=== PATIENT | female | born 1955 | race Caucasian/White ===

== ENCOUNTER 2017-09-20 09:35 | Emergency (ER) | payer SELFPAY ==
[~2017-09-20] VITALS: Ht 167.6 cm; Wt 77.0 kg
[2017-09-20 09:56] VITALS: BP 142/85; PULSE 59; RESP 18; TEMP 98.9; O2SAT 98
[2017-09-20] MEDS ORDERED: SODIUM CHLOR 0.9% 1000 ML INJ 1,000 ML IV SCH (12:06)
[2017-09-20] MEDS ORDERED: SODIUM CHLORIDE 0.9% FLUSH 10 ML FLUSH IVF PRN (12:15)
[2017-09-20] MEDS ORDERED: MORPHINE SULFATE 2 MG/ML INJ IV PUSH ONE (12:15)
--- NOTE | 2017-09-20 12:21 | PD ---
HPI Chief Complaint: Fall Time Seen by Provider: 11:56 Travel History International Travel<30 days: No Contact w/Intl Traveler<30days: No Traveled to known affect area: No History of Present Illness HPI 62-year-old female presents emergency department after a fall that occurred last night. States that [place] step and landed on a concrete wall. Says she had her face, chest, and left hand. Currently she is complaining of severe left orbit and jaw pain. Says she is unable to completely open her jaw because of the pain. Says she woke up this morning and her left chest left hand was tender and painful and decided to come to the emergency department today. She denies loss of consciousness, blurred vision. Says she does have a headache mainly located in the left occipital region. Says she has taken Aleve without significant relief. Says she has a history of a brain tumor status post surgery approximate 4 years ago. Also has a history of asthma and hypothyroidism which are well-controlled with medication. Says she is visiting from [place] for a convention at the urgent center and she is due to return home tomorrow evening. Says she did have an alcoholic drink with dinner but denies excessive consumption resulting in this injury. [facility] Social History Tobacco Use: Yes Allergies-Medications (Allergen,Severity, Reaction): Coded Allergies: No Known Allergies (Unverified , 09/20/17) Review of Systems Except as stated in HPI: all other systems reviewed are Neg Physical Exam Narrative GENERAL: Well-developed, well-nourished, cheerful SKIN: Warm and dry. HEAD: Atraumatic. Normocephalic. TTP to left occipital region without obvious ecchymosis or deformities EYES: Pupils equal and round. No scleral icterus. No injection or drainage. EOMI, no ptosis, no proptosis. Left lateral sphenoid with depression without obvious crepitus. No obvious subcutaneous emphysema. ENT: No nasal bleeding or discharge. Mucous membranes pink and moist. She has very limited ROM of her jaw. NECK: Trachea midline. No JVD. No step-offs or deformities, mild tenderness palpation at the occipital and cervical spine area CARDIOVASCULAR: Regular rate and rhythm. RESPIRATORY: No accessory muscle use. Clear to auscultation. Breath sounds equal bilaterally. Tender to palpation in the anterior and lateral chest wall. No obvious ecchymosis or deformities GASTROINTESTINAL: Abdomen soft, mild tender palpation to the left upper quadrant MUSCULOSKELETAL: Extremities without clubbing, cyanosis, or edema. No obvious deformities. Left middle finger-ecchymosis over the PIP, full range of motion with tenderness no crepitus or deformities NEUROLOGICAL: Awake and alert. No obvious cranial nerve deficits. Motor grossly within normal limits. Five out of 5 muscle strength in the arms and legs. Normal speech. PSYCHIATRIC: Appropriate mood and affect; insight and judgment normal. Data Data Last Documented VS Vital Signs Date Time Temp Pulse Resp B/P (MAP) Pulse Ox O2 Delivery O2 Flow Rate FiO2 09/20/17 18:19 51 16 141/99 (113) 98 Room Air 09/20/17 09:56 98.9 Orders Orders Complete Blood Count With Diff (09/20/17 12:06) Prothrombin Time / Inr (Pt) (09/20/17 12:06) Act Partial Throm Time (Ptt) (09/20/17 12:06) Type And Screen (09/20/17 12:06) Urinalysis - C+S If Indicated (09/20/17 12:06) Ct Brain W/O Iv Contrast(Rout) (09/20/17 12:06) Ct Cerv Spine W/O Contrast (09/20/17 12:06) Ct Abd/Pel W Iv Contrast(Rout) (09/20/17 12:06) Ct Thorax/ Chest W Iv Contrast (09/20/17 12:06) Ct Facial Bones W/O Iv Cont (09/20/17 12:06) Electrocardiogram (09/20/17 12:06) Iv Access Insert/Monitor (09/20/17 12:06) Ecg Monitoring (09/20/17 12:06) Oximetry (09/20/17 12:06) Oxygen Administration (09/20/17 12:06) Sodium Chlor 0.9% 1000 Ml Inj (Ns 1000 M (09/20/17 12:06) Sodium Chloride 0.9% Flush (Ns Flush) (09/20/17 12:15) Ct Thor Spine W/O Contrast (09/20/17 ) Ct Lumb Spine W/O Contrast (09/20/17 ) Comprehensive Metabolic Panel (09/20/17 12:06) Lipase (09/20/17 12:06) Morphine Inj (Morphine Inj) (09/20/17 12:15) Hand, Complete ([id number]) (09/20/17 ) Iohexol 350 Inj (Omnipaque 350 Inj) (09/20/17 15:30) Ed Discharge Order (09/20/17 17:38) Support Splint (09/20/17 17:44) Finger Splint (09/20/17 ) Labs Laboratory Tests Test 09/20/17 12:20 09/20/17 14:50 White Blood Count 8.3 TH/MM3 Red Blood Count 4.66 MIL/MM3 Hemoglobin 14.1 GM/DL Hematocrit 41.6 % Mean Corpuscular Volume 89.3 FL Mean Corpuscular Hemoglobin 30.2 PG Mean Corpuscular Hemoglobin Concent 33.8 % Red Cell Distribution Width 13.3 % Platelet Count 305 TH/MM3 Mean Platelet Volume 8.5 FL Neutrophils (%) (Auto) 60.4 % Lymphocytes (%) (Auto) 22.8 % Monocytes (%) (Auto) 7.5 % Eosinophils (%) (Auto) 8.6 % Basophils (%) (Auto) 0.7 % Neutrophils # (Auto) 5.0 TH/MM3 Lymphocytes # (Auto) 1.9 TH/MM3 Monocytes # (Auto) 0.6 TH/MM3 Eosinophils # (Auto) 0.7 TH/MM3 Basophils # (Auto) 0.1 TH/MM3 CBC Comment DIFF FINAL Differential Comment Prothrombin Time 9.7 SEC Prothromb Time International Ratio 1.0 RATIO Activated Partial Thromboplast Time 27.1 SEC Blood Urea Nitrogen 13 MG/DL Creatinine 0.57 MG/DL Random Glucose 83 MG/DL Total Protein 7.8 GM/DL Albumin 3.8 GM/DL Calcium Level 8.7 MG/DL Alkaline Phosphatase 103 U/L Aspartate Amino Transf (AST/SGOT) 17 U/L Alanine Aminotransferase (ALT/SGPT) 20 U/L Total Bilirubin 0.6 MG/DL Sodium Level 139 MEQ/L Potassium Level 4.0 MEQ/L Chloride Level 107 MEQ/L Carbon Dioxide Level 22.4 MEQ/L Anion Gap 10 MEQ/L Estimat Glomerular Filtration Rate 107 ML/MIN Lipase 106 U/L Urine Color LIGHT-YELLOW Urine Turbidity CLEAR Urine pH 5.5 Urine Specific [place] 1.005 Urine Protein NEG mg/dL Urine Glucose (UA) NEG mg/dL Urine Ketones NEG mg/dL Urine Occult Blood TRACE Urine Nitrite NEG Urine Bilirubin NEG Urine Urobilinogen LESS THAN 2.0 MG/DL Urine Leukocyte Esterase TRACE Urine RBC 1 /hpf Urine WBC LESS THAN 1 /hpf Urine Squamous Epithelial Cells 1 /hpf Microscopic Urinalysis Comment CULT NOT INDICATED MDM Medical Decision Making Medical Screen Exam Complete: Yes Emergency Medical Condition: Yes Differential Diagnosis left middle finger fracture, contusion, sprain left chest wall contusion, rib fracture, pneumothorax Narrative Course 62y female with a history of hypothyroidism, asthma, and brain tumor s/p surg presents to the ED c/o left facial, left chest wall, left middle finger pain after a fall that occurred last night. She decided to come in today because she had increased jaw and chest wall pain. Labs and imaging studies ordered. CT maxillofacial demonstrates 1. Fracturing of left zygomatic arch. This appears acute. There is some induration in the superficial subcutaneous fat in this region. 2 maxillary sinus disease. 3. Chronic changes the left frontal bone. For low density in the inferior frontal lobes likely from contusions. This could be chronic." I spoke to Dr. Burgos and explained patient's history and findings on CT. Says that the findings are possibly from the previous surgery. Recommended I discuss his case with the radiologist. See Dr. Forte's note regarding this conversation. Morphine 2mg administered for pain, 1L NS IVF bolus for pain. CBC & BMP Diagram 09/20/17 12:20 Total Protein 7.8, Albumin 3.8, Calcium Level 8.7, Alkaline Phosphatase 103, Aspartate Amino Transf (AST/SGOT) 17, Alanine Aminotransferase (ALT/SGPT) 20, Total Bilirubin 0.6 I advised patient follow-up with primary care physician within 2-3 days. Avoid blowing her nose or any other trauma to the face. Tylenol or Motrin per package instructions for pain relief. If symptoms persist or worsen return to the emergency department. Diagnosis Primary Impression: Sprain of left middle finger Qualified Codes: S63.633A - Sprain of interphalangeal joint of left middle finger, initial encounter Additional Impression: Zygomatic arch fracture Qualified Codes: S02.40FA - Zygomatic fracture, left side, initial encounter for closed fracture Referrals: Primary Care Physician Additional Instructions: Follow-up with your primary care physician within 2-3 days. Follow up with a maxillofacial specialist Friday. Disposition: DISCHARGE HOME Condition: Stable Elizabeth Longo Sep 20, 2017 12:21
[2017-09-20 12:25] VITALS: BP 130/80; PULSE 55; RESP 18; O2SAT 98
--- NOTE | 2017-09-20 13:00 | RADRPT ---
EXAM DATE/TIME: 09/20/2017 12:44 [facility] COMPARISON: No previous studies available for comparison. INDICATIONS : Pain from fall. MEDICAL HISTORY : None. SURGICAL HISTORY : None. ENCOUNTER: Initial ACUITY: 1 day PAIN SCORE: 5/10 LOCATION: Left hand. FINDINGS: Three view examination of the left hand demonstrates no soft tissue swelling, dislocation, or fractur e. The carpal bones appear intact. The interphalangeal and metacarpophalangeal joints are intact. Bony mineralization is normal. CONCLUSION: No acute disease. Spike Carcamo MD on September 20, 2017 at 12:55 Board Certified Radiologist. This report was verified electronically.
[2017-09-20 13:22] LABS: BASOPHIL # 0.1 TH/MM3 (0-0.2); BASOPHIL % 0.7 % (0.0-2.0); EOSINOPHIL # 0.7 TH/MM3 (0-0.4); EOSINOPHIL % 8.6 % (0.0-4.0); HEMATOCRIT 41.6 % (35.0-46.0); HEMOGLOBIN 14.1 GM/DL (11.6-15.3); LYMPH % 22.8 % (9.0-44.0); LYMPHOCYTE # 1.9 TH/MM3 (1.0-4.8); MEAN CELL VOLUME 89.3 FL (80.0-100.0); MEAN CORPUSCULAR HEMOGLOBIN 30.2 PG (27.0-34.0); MEAN CORPUSCULAR HGB CONC 33.8 % (32.0-36.0); MEAN PLATELET VOLUME 8.5 FL (7.0-11.0); MONO % 7.5 % (0.0-8.0); MONOCYTE # 0.6 TH/MM3 (0-0.9); NEUT % 60.4 % (16.0-70.0); PLATELET COUNT 305 TH/MM3 (150-450); RED BLOOD COUNT 4.66 MIL/MM3 (4.00-5.30); RED CELL DISTRIBUTION WIDTH 13.3 % (11.6-17.2); WHITE BLOOD COUNT 8.3 TH/MM3 (4.0-11.0)
[2017-09-20 13:29] LABS: PROTHROMBIN TIME - PATIENT 9.7 SEC (9.8-11.6)
[2017-09-20 13:49] LABS: ALBUMIN 3.8 GM/DL (3.4-5.0); ALT (GPT) 20 U/L (10-53); AST (GOT) 17 U/L (15-37); BICARBONATE 22.4 MEQ/L (21.0-32.0); BLOOD UREA NITROGEN 13 MG/DL (7-18); CALCIUM 8.7 MG/DL (8.5-10.1); CHLORIDE 107 MEQ/L (98-107); CREATININE 0.57 MG/DL (0.50-1.00); GLOMERULAR FILTRATION RATE 107 ML/MIN (>89); GLUCOSE,RANDOM 83 MG/DL (74-106); SODIUM (NA) 139 MEQ/L (136-145)
[2017-09-20 13:51] LABS: ALKALINE PHOSPHATASE 103 U/L (45-117); TOTAL BILIRUBIN ADULT 0.6 MG/DL (0.2-1.0); TOTAL PROTEIN 7.8 GM/DL (6.4-8.2)
[2017-09-20] MEDS ORDERED: IOHEXOL 350 MG/ML 10 ML VIAL (for RAD DIAG) IVCONTRAST ONE (15:30)
[2017-09-20 15:53] LABS: BILIRUBIN, URINE NEG (NEG); BLOOD, URINE TRACE (NEG); GLUCOSE,URINE NEG (NEG); KETONE, URINE NEG (NEG); NITRITE,URINE NEG (NEG); PH, URINE 5.5 (5.0-8.5); SQUAMOUS EPITHELIAL CELL URINE 1 /hpf (0-5); URINE COLOR LIGHT-YELLOW (YELLW/STRAW); URINE LEUKOCYTE ESTERASE TRACE (NEG)
--- NOTE | 2017-09-20 16:21 | RADRPT ---
EXAM DATE/TIME: 09/20/2017 14:53 [facility] COMPARISON: No previous studies available for comparison. INDICATIONS : Trauma, fall last night. Left sided occipital cephalgia and left sided chest pain. RADIATION DOSE: 56.35 CTDIvol (mGy) MEDICAL HISTORY : None SURGICAL HISTORY : Craniotomy. ENCOUNTER: Initial ACUITY: 1 day PAIN SCALE: 7/10 LOCATION: Left occipital head TECHNIQUE: Multiple contiguous axial images were obtained of the head. Using automated exposure control and adj ustment of the mA and/or kV according to patient size, radiation dose was kept as low as reasonably a chievable to obtain optimal diagnostic quality images. DICOM format image data is available electro nically for review and comparison. FINDINGS: CEREBRUM: The ventricles are normal for age. No evidence of midline shift, mass lesion, hemorrhage or acute in farction. There is decreased density at the inferior left frontal lobe and to a lesser degree inferi or medial right frontal lobe. No extra-axial fluid collections are seen. POSTERIOR FOSSA: The cerebellum and brainstem are intact. The 4th ventricle is midline. The cerebellopontine angle i s unremarkable. EXTRACRANIAL: The patient has postsurgical change of the left frontal bone from prior repair and/or craniotomy. The visualized portion of the orbits is intact. SKULL: The calvaria is intact. No evidence of skull fracture. There is fracturing of the left zygomatic arc h. CONCLUSION: 1. Low density nephrology bilaterally being more prominent left. This could be from prior contusions in the location. The patient does have postoperative change in the left frontal bone. More acute area s of contusion cannot be excluded but significant mass effect is not seen suggesting these are likely chronic. Prior exams are unavailable. 2. Fractured left zygomatic arch. The age of this deformity is not known. Spike Carcamo MD on September 20, 2017 at 16:13 Board Certified Radiologist. This report was verified electronically.
--- NOTE | 2017-09-20 16:24 | RADRPT ---
EXAM DATE/TIME: 09/20/2017 14:53 [facility] COMPARISON: No previous studies available for comparison. INDICATIONS : Trauma, fall last night. Left sided occipital cephalgia and left sided chest pain. RADIATION DOSE: 19.85 CTDIvol (mGy) MEDICAL HISTORY : None SURGICAL HISTORY : Craniotomy. ENCOUNTER: Initial ACUITY: 1 day PAIN SCALE: 5/10 LOCATION: Bilateral neck TECHNIQUE: Volumetric scanning of the cervical spine was performed. Multiplanar reconstructions in the sagittal, coronal and oblique axial planes were performed. Using automated exposure control and adjustment o f the mA and/or kV according to patient size, radiation dose was kept as low as reasonably achievable to obtain optimal diagnostic quality images. DICOM format image data is available electronically f or review and comparison. FINDINGS: VERTEBRAE: Normal vertebral body height. ALIGNMENT: There is minimal anterior subluxation of C5 on C6 secondary to facet hypertrophy. C2-C3: The bony spinal canal is normal in size. No evidence of disc bulge or herniation. The neural forami na are bilaterally patent. There is left facet hypertrophy. C3-C4: The bony spinal canal is normal in size. No evidence of disc bulge or herniation. The neural forami na are bilaterally patent. There is left facet hypertrophy. C4-C5: There is disc space narrowing, mild bulging and posterior osteophytic ridging causing a mild impress on the thecal sac. There is uncovertebral and facet hypertrophy. There is mild narrowing of the right neural foramina. The left neural foramina is patent. C5-C6: Again noted is the mild anterior subluxation of C5 on C6. The bony spinal canal is normal in size. N o evidence of disc bulge or herniation. The neural foramina are bilaterally patent. There is facet h ypertrophy being worse on the left. C6-C7: The bony spinal canal is normal in size. No evidence of disc bulge or herniation. The neural forami na are bilaterally patent. There is mild facet hypertrophy. C7-T1: The bony spinal canal is normal in size. No evidence of disc bulge or herniation. The neural forami na are bilaterally patent. There is mild facet hypertrophy. CONCLUSION: Degenerative change throughout. No acute abnormality is seen. Spike Carcamo MD on September 20, 2017 at 16:18 Board Certified Radiologist. This report was verified electronically.
--- NOTE | 2017-09-20 16:30 | RADRPT ---
EXAM DATE/TIME: 09/20/2017 14:53 [facility] COMPARISON: No previous studies available for comparison. INDICATIONS : Trauma, fall last night. Left sided occipital cephalgia and left sided chest pain. RADIATION DOSE: 21.96 CTDIvol (mGy) MEDICAL HISTORY : None SURGICAL HISTORY : Craniotomy. ENCOUNTER: Initial ACUITY: 1 day PAIN SCORE: 7/10 LOCATION: Left occipital head TECHNIQUE: Volumetric scanning of the facial bones was performed. Using automated exposure control and adjustme nt of the mA and/or kV according to patient size, radiation dose was kept as low as reasonably achiev able to obtain optimal diagnostic quality images. DICOM format image data is available electronicall y for review and comparison. FINDINGS: ORBITS: The orbital and infraorbital osseous structures are intact. The retroconal structures have a normal configuration. No radiopaque foreign bodies are seen. NASAL BONE: The nasal bone and maxillary spine are intact ZYGOMATIC ARCHES: There is fracturing of the zygomatic arch in 3 places on the left, anteriorly, at the midportion and posteriorly. This appears acute. There is some induration of the more superficial fat in this region. SINUSES: There is mucosal disease of the maxillary sinuses bilaterally. The ethmoid and frontal sinuses are in tact. No air-fluid levels seen. NASAL CAVITY: The nasal septum is intact and midline. The lacrimal ducts are intact. SOFT TISSUES: No radiopaque foreign bodies seen. There is induration of the fat over the left zygomatic arch.. INTRACRANIAL: No intracranial air seen. There is post surgical change and hardware are seen at the left frontal bon e. There is low density at the inferior frontal lobes bilaterally being more prominent on the left. CRIBIFORM PLATE: Grossly intact. CONCLUSION: 1. Fracturing of the left zygomatic arch. This appears acute. There is some induration in the superfi cial subcutaneous fat in this region. 2. Maxillary sinuses ease. 3. Chronic changes the left frontal bone. 4. Low density in the inferior frontal lobes likely from contusions. These could be chronic. Spike Carcamo MD on September 20, 2017 at 16:22 Board Certified Radiologist. This report was verified electronically.
--- NOTE | 2017-09-20 16:39 | RADRPT ---
EXAM DATE/TIME: 09/20/2017 15:04 [place] Corrected on: September 20, 2017; [facility] COMPARISON: No previous studies available for comparison. INDICATIONS : Trauma, fall last night. Left sided occipital cephalgia and left sided chest pain. IV CONTRAST: 95 cc Omnipaque 350 (iohexol) IV ORAL CONTRAST: No oral contrast ingested. RADIATION DOSE: 9.96 CTDIvol (mGy) ; Combined studies MEDICAL HISTORY : None SURGICAL HISTORY : Hysterectomy. section. ENCOUNTER: Initial ACUITY: 1 day PAIN SCALE: 0/10 LOCATION: Bilateral abdomen TECHNIQUE: Volumetric scanning of the abdomen and pelvis was performed. Using automated exposure control and ad justment of the mA and/or kV according to patient size, radiation dose was kept as low as reasonably achievable to obtain optimal diagnostic quality images. DICOM format image data is available electro nically for review and comparison. FINDINGS: LOWER LUNGS: The visualized lower lungs are clear. LIVER: Homogeneous density without lesion. There is no dilation of the biliary tree. No calcified gallston es. SPLEEN: Normal size without lesion. PANCREAS: Within normal limits. KIDNEYS: Normal in size and shape. There is no mass, stone or hydronephrosis. ADRENAL GLANDS: Within normal limits. VASCULAR: There is no aortic aneurysm. BOWEL/MESENTERY: There are scattered colonic diverticula present. there some minimal induration seen around the divert icula at the sigmoid colon. ABDOMINAL WALL: Within normal limits. RETROPERITONEUM: There is no lymphadenopathy. BLADDER: No wall thickening or mass. REPRODUCTIVE: The patient is status post hysterectomy. INGUINAL: There is no lymphadenopathy or hernia. MUSCULOSKELETAL: There is degenerative change of the lower lumbar spine. CONCLUSION: 1. No acute posttraumatic abnormality seen. 2. Scattered colonic diverticula with some minimal induration in the surrounding fat which could repr esent some mild diverticulitis. Spike Carcamo MD on September 20, 2017 at 16:33 Board Certified Radiologist. This report was verified electronically. Spike Carcamo MD on September 20, 2017 at 17:03 Board Certified Radiologist. This report was verified electronically.
--- NOTE | 2017-09-20 16:40 | RADRPT ---
EXAM DATE/TIME: 09/20/2017 15:04 [facility] COMPARISON: No previous studies available for comparison. INDICATIONS : Trauma, fall last night. Left sided occipital cephalgia and left sided chest pain. IV CONTRAST: 95 cc Omnipaque 350 (iohexol) IV ; Cumulative dose for multiple exams. RADIATION DOSE: 9.96 CTDIvol (mGy) ; Combined studies MEDICAL HISTORY : None SURGICAL HISTORY : Hysterectomy. section. ENCOUNTER: Initial ACUITY: 1 day PAIN SCALE: 7/10 LOCATION: Left chest TECHNIQUE: Volumetric scanning of the chest was performed. Using automated exposure control and adjustment of t he mA and/or kV according to patient size, radiation dose was kept as low as reasonably achievable to obtain optimal diagnostic quality images. DICOM format image data is available electronically for review and comparison. Follow-up recommendations for detected pulmonary nodules are based at a minimum on nodule size and pa tient risk factors according to Fleischner Society Guidelines. FINDINGS: LUNGS: There is no consolidation or pneumothorax. No concerning pulmonary nodule is visualized. PLEURA: There is no pleural thickening or pleural effusion. MEDIASTINUM: The heart and great vessels demonstrate no acute abnormality. There is no mediastinal or hilar lymph adenopathy. AXILLAE: Within normal limits. No lymphadenopathy. SKELETAL: Within normal limits for patient age. MISCELLANEOUS: The visualized upper abdominal organs demonstrate no acute abnormality. CONCLUSION: No acute disease. Spike Carcamo MD on September 20, 2017 at 16:36 Board Certified Radiologist. This report was verified electronically.
--- NOTE | 2017-09-20 16:58 | RADRPT ---
EXAM DATE/TIME: 09/20/2017 15:04 [facility] COMPARISON: No previous studies available for comparison. INDICATIONS : Trauma, fall last night. Left sided occipital cephalgia and left sided chest pain. RADIATION DOSE: ; Reconstructed from previous dataset, no dose MEDICAL HISTORY : None SURGICAL HISTORY : Hysterectomy. section. ENCOUNTER: Initial ACUITY: 1 day PAIN SCALE: 0/10 LOCATION: Bilateral upper back TECHNIQUE: Volumetric scanning of the thoracic spine was performed. Multiplanar reconstructions in the sagittal , coronal and oblique axial planes were performed. Using automated exposure control and adjustment o f the mA and/or kV according to patient size, radiation dose was kept as low as reasonably achievable to obtain optimal diagnostic quality images. DICOM format image data is available electronically f or review and comparison. FINDINGS: The vertebral bodies of the thoracic spine are in normal alignment without evidence of subluxation. Vertebral body height is maintained. No fractures are seen. There is facet hypertrophy at the upper thoracic spine. T1-T2: Normal. T2-T3: The thecal sac has a normal diameter. No evidence of disc bulge or protrusion. T3-T4: The thecal sac has a normal diameter. No evidence of disc bulge or protrusion. T4-T5: The thecal sac has a normal diameter. No evidence of disc bulge or protrusion. T5-T6: The thecal sac has a normal diameter. No evidence of disc bulge or protrusion. T6-T7: The thecal sac has a normal diameter. No evidence of disc bulge or protrusion. T7-T8: The thecal sac has a normal diameter. No evidence of disc bulge or protrusion. T8-T9: The thecal sac has a normal diameter. No evidence of disc bulge or protrusion. T9-T10: The thecal sac has a normal diameter. No evidence of disc bulge or protrusion. T10-T11: The thecal sac has a normal diameter. No evidence of disc bulge or protrusion. T11-T12: The thecal sac has a normal diameter. No evidence of disc bulge or protrusion. T12-L1: The thecal sac has a normal diameter. No evidence of disc bulge or protrusion. CONCLUSION: No acute abnormality seen. Spike Carcamo MD on September 20, 2017 at 16:50 Board Certified Radiologist. This report was verified electronically.
--- NOTE | 2017-09-20 17:04 | RADRPT ---
EXAM DATE/TIME: 09/20/2017 15:04 [facility] COMPARISON: CT ABDOMEN & PELVIS W CONTRAST, September 20, 2017, 15:04. INDICATIONS : Trauma, fall last night. Left sided occipital cephalgia and left sided chest pain. RADIATION DOSE: ; Reconstructed from previous dataset, no dose MEDICAL HISTORY : None SURGICAL HISTORY : Hysterectomy. section. ENCOUNTER: Initial ACUITY: 1 day PAIN SCALE: 0/10 LOCATION: Bilateral lower back TECHNIQUE: Volumetric scanning of the lumbar spine was performed. Multiplanar reconstructions in the sagittal, coronal and oblique axial planes were performed. Using automated exposure control and adjustment of the mA and/or kV according to patient size, radiation dose was kept as low as reasonably achievable t o obtain optimal diagnostic quality images. DICOM format image data is available electronically for review and comparison. FINDINGS: VERTEBRAE: Normal vertebral body height. ALIGNMENT: No evidence of subluxation. T12-L1: The thecal sac has a normal diameter. No evidence of disc bulge or protrusion. The neural foramina are patent bilaterally. L1-L2: The thecal sac has a normal diameter. No evidence of disc bulge or protrusion. The neural foramina are patent bilaterally. L2-L3: There is mild asymmetric disc bulging worse on the right. This causing mild impression on the thecal sac. The neural foramina are patent bilaterally. There is mild facet hypertrophy. L3-L4: The thecal sac has a normal diameter. No evidence of disc bulge or protrusion. The neural foramina are patent bilaterally. There is mild facet hypertrophy. L4-L5: There is mild diffuse disc bulge. There is moderate facet hypertrophy. These changes lead to moderate stenosis. The neural foramina are patent bilaterally. L5-S1: The thecal sac has a normal diameter. No evidence of disc bulge or protrusion. The neural foramina are patent bilaterally. There is moderate facet hypertrophy. CONCLUSION: 1. No acute abnormality seen. 2. Moderate stenosis at the L4-L5 level secondary to mild disc bulge and facet hypertrophy. 3. Mild impression on the thecal sac at the L2-L3 level secondary to disc bulge been asymmetric and w orse on the right. 4. Facet hypertrophy. Spike Carcamo MD on September 20, 2017 at 16:55 Board Certified Radiologist. This report was verified electronically.
--- NOTE | 2017-09-20 17:47 | PD ---
Physical Exam Date Seen by Provider: Sep 20, 2017 Time Seen by Provider: 15:00 Narrative I, Dr. Augustin, have reviewed the advance practice practitioner's documentation and am in agreement, met with the patient face to face, made the diagnosis, and the medical decision making was done by me. *My assessment and Findings: Patient seen and evaluated with PA, please see PA note for further details. She fell, hitting her left cheek, left hand, left chest wall, currently complaining of pain in those areas, is not sure whether she lost consciousness. Workup was initiated in the ER with CAT scans ordered for further evaluation. Laboratory Tests Test 09/20/17 12:20 09/20/17 14:50 Eosinophils (%) (Auto) 8.6 % (0.0-4.0) Eosinophils # (Auto) 0.7 TH/MM3 (0-0.4) Prothrombin Time 9.7 SEC (9.8-11.6) Urine Occult Blood TRACE (NEG) Urine Leukocyte Esterase TRACE (NEG) CAT scan shows a left zygomatic arch fracture. She did not have any signs of other acute injuries. Her left frontal lobe area does show signs of questionable contusion versus postsurgical changes. On further questioning, patient has had brain tumor removed from that area and I suspect that this is more likely to be postsurgical changes. Case was discussed with Dr. Brar of radiology who had read the study and agrees that he does not see any underlying edema, thinks that these are chronic changes rather than acute injury. Patient is completely awake, alert, oriented in the ER and walking around without issues. My plan would be to release her at this point with follow-up to primary care doctor. Return for new issues as needed. The plan was discussed with her and she states understanding. She will need to follow-up for zygomatic arch fracture with oral maxillofacial as well. Data Data Last Documented VS Vital Signs Date Time Temp Pulse Resp B/P (MAP) Pulse Ox O2 Delivery O2 Flow Rate FiO2 09/20/17 12:26 Room Air 09/20/17 12:25 55 18 130/80 (97) 98 09/20/17 09:56 98.9 Orders Orders Complete Blood Count With Diff (09/20/17 12:06) Prothrombin Time / Inr (Pt) (09/20/17 12:06) Act Partial Throm Time (Ptt) (09/20/17 12:06) Type And Screen (09/20/17 12:06) Urinalysis - C+S If Indicated (09/20/17 12:06) Ct Brain W/O Iv Contrast(Rout) (09/20/17 12:06) Ct Cerv Spine W/O Contrast (09/20/17 12:06) Ct Abd/Pel W Iv Contrast(Rout) (09/20/17 12:06) Ct Thorax/ Chest W Iv Contrast (09/20/17 12:06) Ct Facial Bones W/O Iv Cont (09/20/17 12:06) Electrocardiogram (09/20/17 12:06) Iv Access Insert/Monitor (09/20/17 12:06) Ecg Monitoring (09/20/17 12:06) Oximetry (09/20/17 12:06) Oxygen Administration (09/20/17 12:06) Sodium Chlor 0.9% 1000 Ml Inj (Ns 1000 M (09/20/17 12:06) Sodium Chloride 0.9% Flush (Ns Flush) (09/20/17 12:15) Ct Thor Spine W/O Contrast (09/20/17 ) Ct Lumb Spine W/O Contrast (09/20/17 ) Comprehensive Metabolic Panel (09/20/17 12:06) Lipase (09/20/17 12:06) Morphine Inj (Morphine Inj) (09/20/17 12:15) Hand, Complete ([id number]) (09/20/17 ) Iohexol 350 Inj (Omnipaque 350 Inj) (09/20/17 15:30) Ed Discharge Order (09/20/17 17:38) Labs Laboratory Tests Test 09/20/17 12:20 09/20/17 14:50 White Blood Count 8.3 TH/MM3 Red Blood Count 4.66 MIL/MM3 Hemoglobin 14.1 GM/DL Hematocrit 41.6 % Mean Corpuscular Volume 89.3 FL Mean Corpuscular Hemoglobin 30.2 PG Mean Corpuscular Hemoglobin Concent 33.8 % Red Cell Distribution Width 13.3 % Platelet Count 305 TH/MM3 Mean Platelet Volume 8.5 FL Neutrophils (%) (Auto) 60.4 % Lymphocytes (%) (Auto) 22.8 % Monocytes (%) (Auto) 7.5 % Eosinophils (%) (Auto) 8.6 % Basophils (%) (Auto) 0.7 % Neutrophils # (Auto) 5.0 TH/MM3 Lymphocytes # (Auto) 1.9 TH/MM3 Monocytes # (Auto) 0.6 TH/MM3 Eosinophils # (Auto) 0.7 TH/MM3 Basophils # (Auto) 0.1 TH/MM3 CBC Comment DIFF FINAL Differential Comment Prothrombin Time 9.7 SEC Prothromb Time International Ratio 1.0 RATIO Activated Partial Thromboplast Time 27.1 SEC Blood Urea Nitrogen 13 MG/DL Creatinine 0.57 MG/DL Random Glucose 83 MG/DL Total Protein 7.8 GM/DL Albumin 3.8 GM/DL Calcium Level 8.7 MG/DL Alkaline Phosphatase 103 U/L Aspartate Amino Transf (AST/SGOT) 17 U/L Alanine Aminotransferase (ALT/SGPT) 20 U/L Total Bilirubin 0.6 MG/DL Sodium Level 139 MEQ/L Potassium Level 4.0 MEQ/L Chloride Level 107 MEQ/L Carbon Dioxide Level 22.4 MEQ/L Anion Gap 10 MEQ/L Estimat Glomerular Filtration Rate 107 ML/MIN Lipase 106 U/L Urine Color LIGHT-YELLOW Urine Turbidity CLEAR Urine pH 5.5 Urine Specific [place] 1.005 Urine Protein NEG mg/dL Urine Glucose (UA) NEG mg/dL Urine Ketones NEG mg/dL Urine Occult Blood TRACE Urine Nitrite NEG Urine Bilirubin NEG Urine Urobilinogen LESS THAN 2.0 MG/DL Urine Leukocyte Esterase TRACE Urine RBC 1 /hpf Urine WBC LESS THAN 1 /hpf Urine Squamous Epithelial Cells 1 /hpf Microscopic Urinalysis Comment CULT NOT INDICATED MDM Medical Record Reviewed: Yes Supervised Visit with ESTUARDO: Yes Diagnosis Primary Impression: Sprain of left middle finger Qualified Codes: S63.633A - Sprain of interphalangeal joint of left middle finger, initial encounter Additional Impression: Zygomatic arch fracture Qualified Codes: S02.40FA - Zygomatic fracture, left side, initial encounter for closed fracture Referrals: Ramón Valdes DMD Primary Care Physician Additional Instruction: Follow-up with your primary care physician within 2-3 days. Follow up with a maxillofacial specialist Friday. Disposition: 01 DISCHARGE HOME Condition: Stable Halina Augustin MD Sep 20, 2017 17:47
[2017-09-20 18:19] VITALS: BP 141/99; PULSE 51; RESP 16; O2SAT 98
--- NOTE | 2017-09-20 19:10 | EKG ---
Date Performed: 09/20/2017 Time Performed: 12:20:28 PTAGE: 62 years EKG: SINUS BRADYCARDIA BORDERLINE ECG INTERPRETATION BASED ON A DEFAULT AGE OF 40 YEARS NO PREVIOUS TRACING DOCTOR: Valentina Puente Interpretating Date/Time 09/20/2017 19:08:02
== END 2017-09-20 18:31 | disposition home or self-care (01) ==
LOC: NEPC 09:35
DX: S02.40FA Zygomatic fracture, left side, initial encounter for closed fracture (principal); S63.633A Sprain of interphalangeal joint of left middle finger, initial encounter; R94.31 Abnormal electrocardiogram [ECG] [EKG]; J45.909 Unspecified asthma, uncomplicated; E03.9 Hypothyroidism, unspecified; M48.061 Spinal stenosis, lumbar region without neurogenic claudication; W10.8XXA Fall (on) (from) other stairs and steps, initial encounter; Y92.832 Beach as the place of occurrence of the external cause; Z72.0 Tobacco use
CPT/HCPCS: 70450; 70486; 71260; 72125; 72128; 72131; 73130; 74177; 80053; 81001; 83690; 85025; 85610; 85730; 86850; 86900; 86901; 93005; 96361; 96374; 99284; J2270; J7030; Q9967